=== PATIENT | female | born 1965 ===

== ENCOUNTER → 2019-08-27 | Outpatient (CLI) | payer BC ==
[2019-08-27 14:07] LABS: Stool Occult Bld Immuno 1 Negative (NEGATIVE)
== END ==
LOC: LAB SRC 11:04 → LAB SHORT 11:04 → LAB FUT 07-31 10:15
PROVIDERS: Physician Assistant
DX: Z12.12 Encounter for screening for malignant neoplasm of rectum (principal); Z13.1 Encounter for screening for diabetes mellitus; E78.5 Hyperlipidemia, unspecified; I10 Essential (primary) hypertension; R73.9 Hyperglycemia, unspecified
CPT/HCPCS: 36415; 83036; G0328